=== PATIENT | male | born 1975 | race Two or more races ===

== ENCOUNTER 2024-12-04 16:00 | Emergency (ER) | payer SELFPAY ==
[~2024-12-04] VITALS: Ht 160 cm; Wt 80.3 kg
[2024-12-04] MEDS ORDERED: IOHEXOL 300MG/ML 100 ML INFUS..BTL ONE (16:27)
[2024-12-04 17:02] LABS: PLATELET COUNT (AUTO) 237 K/uL (152-348); RED BLOOD CELL COUNT(AUTO) 4.45 MIL/uL (4.06-5.63); RED CELL DISTRIBUTION WIDTH 14.0 % (12.1-16.2); WHITE BLOOD COUNT (AUTO) 6.8 K/uL (3.6-10.2)
[2024-12-04 17:18] LABS: CREATININE 1.0 mg/dL (0.6-1.3); SODIUM SERUM 145.0 mmol/L (136-145); UREA NITROGEN, BLOOD 11.0 mg/dL (7-18)
[2024-12-04 17:25] LABS: ASPARTATE AMINOTRANSFERASE 21.0 U/L (15-37); TOTAL PROTEIN, SERUM 6.7 g/dL (6.4-8.2)
[2024-12-04] MEDS ORDERED: LIDO30AD10 TP (18:25)
[2024-12-04] MEDS ORDERED: CYCL5TAB PO (18:25)
[2024-12-04] MEDS ORDERED: IBUP-1955 PO (18:25)
[2024-12-04] MEDS ORDERED: LIDOCAINE 5% PATCH TD ONE (18:29)
[2024-12-04] MEDS ORDERED: KETOROLAC TROMETHAMINE 15 MG INJ ONE (18:30)
[2024-12-04] MEDS ORDERED: CYCLOBENZAPRINE HCL 10 MG TABLET ONE (18:30)
[2024-12-04] MEDS: KETOROLAC TROMETHAMINE 15 MG INJ IM ONE (18:38)
[2024-12-04] MEDS: LIDOCAINE 5% PATCH TD ONE (18:39)
[2024-12-04] MEDS: CYCLOBENZAPRINE HCL 10 MG TABLET PO ONE (18:39)
[2024-12-04 19:01] VITALS: BP 131/90
[2024-12-04 19:15] VITALS: BP 131/90; TEMP 97.7; O2SAT 99
== END 2024-12-04 19:15 | disposition home or self-care (01) ==
LOC: ER 16:00
DX: S13.4XXA Sprain of ligaments of cervical spine, initial encounter (principal); S43.402A Unspecified sprain of left shoulder joint, initial encounter; R07.89 Other chest pain; Z90.49 Acquired absence of other specified parts of digestive tract; V49.49XA Driver injured in collision with other motor vehicles in traffic accident, initial encounter; Y93.89 Activity, other specified; Y92.410 Unspecified street and highway as the place of occurrence of the external cause; Y99.9 Unspecified external cause status
CPT/HCPCS: 99285; 70450; 80076; 80048; 85025; 85730; 36415; 71260; 72125; 74177; 96372; J1885; Q9967; A4606; A4663